=== PATIENT | female | born 1975 | race African-American/Black ===

== ENCOUNTER 2019-11-28 08:41 | Inpatient (IN) | payer BC, OTHER ==
[2019-11-25 18:05] VITALS: BMI 42.0
[2019-11-28] MEDS ORDERED: ceFAZolin SODIUM 1 GM VIAL ONE ×2 (08:49→11:42)
[2019-11-28] MEDS ORDERED: ROCURONIUM BROMIDE 50 MG/5 ML VIAL ONE ×2 (08:49→11:37)
[2019-11-28] MEDS ORDERED: PROPOFOL 20 ML ONE ×3 (08:49→11:37)
[2019-11-28] MEDS ORDERED: LIDOCAINE HCL/PF 2% SDV 5ML VIAL ONE (08:51)
[2019-11-28] MEDS ORDERED: SODIUM CHLORIDE 0.9% P/F 10 ML VIAL IJ ONE (08:51)
[2019-11-28] MEDS ORDERED: ePHEDrine SULFATE 50 MG/1 ML AMPULE ONE (08:53)
[2019-11-28] MEDS ORDERED: MIDAZOLAM HCL 2 MG/2 ML SINGLE DOSE VIAL ONE ×3 (09:51→11:24)
[2019-11-28] MEDS ORDERED: BUPIVACAINE HCL/PF 0.5% (5 MG/ML) 30 ML VIAL IJ ONE (09:52)
[2019-11-28] MEDS ORDERED: DEXAMETHASONE SOD PHOSPHATE/PF 10 MG/ML SDV ONE (09:52)
[2019-11-28] MEDS ORDERED: DEXAMETHASONE SOD PHOSPHATE 4 MG/1 ML VIAL ONE (11:48)
[2019-11-28] MEDS ORDERED: ONDANSETRON 4 MG/2 ML VIAL ONE (11:48)
[2019-11-28] MEDS ORDERED: BUPIVACAINE HCL/PF 0.25% (2.5MG/ML) 10 ML VIAL IJ ONE ×3 (12:01→13:00)
[2019-11-28] MEDS ORDERED: PHENYLEPHRINE HCL 10 MG/1 ML SINGLE DOSE VIAL ONE ×2 (12:27→12:28)
[2019-11-28] MEDS ORDERED: GLYCOPYRROLATE 0.2 MG/1 ML VIAL ONE (12:44)
[2019-11-28] MEDS ORDERED: NEOSTIGMINE METHYLSULFATE 0.5 MG/ML - 10 ML MDV ONE (12:44)
[2019-11-28] MEDS ORDERED: ONDANSETRON 4 MG/2 ML VIAL IVPUSH PRN ×2 (12:57→14:31)
[2019-11-28] MEDS ORDERED: HYDROmorphone HCL 0.5 MG/0.5 ML SYRINGE IVPB PRN (12:59)
[2019-11-28] MEDS ORDERED: SODIUM CHLORIDE 1,000 ML IV SCH (13:00)
[2019-11-28] MEDS ORDERED: HYDROmorphone HCL/PF 1 MG/ML VIAL IVPB PRN (13:00)
[2019-11-28] MEDS ORDERED: FAMOTIDINE 20 MG/50 ML IVPB 20 MG/50 ML MG IVPB ONE (13:07)
--- NOTE | 2019-11-28 13:07 | OP ---
Operative Note - Note: Operative Date: 11/28/19 Pre-Operative Diagnosis: Morbid Obesity. Hypertension Operation: Laparoscopic Vertical Sleeve Gastrectomy. Laparoscopic lysisi of adhesions. Diagnostic Laparoscopy Findings: Greater curve sleeve gastrectomy performed with #[address] Laparoscopic lysis of adhesions performed in upper abdomen secondary to previous midline incision Very enlarged left lobe of liver Post-Operative Diagnosis: Same as Pre-op (Abdominal adhesions; Hepatomegaly) Surgeon: Gerry Greene Gold Stamper: Bobby Amaya Anesthesia: General Specimens Removed: Greater curve of stomach Estimated Blood Loss (mls): 50 Operative Report Dictated: Yes
[2019-11-28 14:19] LABS: HEMATOCRIT 38.2 % (32.4-45.2); MCH 24.8 pg (25.7-33.7); MCHC 31.5 g/dl (32.0-36.0); MEAN CELL VOLUME 78.9 fl (80-96); PLATELET COUNT 264 K/MM3 (134-434); RBC 4.84 M/mm3 (3.60-5.2); RDW 15.5 % (11.6-15.6); WHITE BLOOD COUNT 18.3 K/mm3 (4.0-10.8)
[2019-11-28 14:26] LABS: ALBUMIN 4.1 g/dl (3.4-5.0); BILIRUBIN,TOTAL 0.4 mg/dl (0.2-1); CALCIUM 8.9 mg/dl (8.5-10); POTASSIUM 4.4 mmol/L (3.5-5.1); TOT PROT 7.3 g/dl (6.4-8.2)
[2019-11-28] MEDS ORDERED: PROMETHAZINE HCL 25 MG/1 ML VIAL IVPUSH PRN (14:31)
--- NOTE | 2019-11-28 14:47 | OP ---
DATE OF OPERATION: 11/28/2019 PREOPERATIVE DIAGNOSES: 1. Morbid obesity. 2. Hypertension. POSTOPERATIVE DIAGNOSES: 1. Morbid obesity. 2. Hypertension. 3. Abdominal adhesion. 4. Hepatomegaly. PROCEDURE PERFORMED: 1. Laparoscopic vertical sleeve gastrectomy. 2. Laparoscopic lysis of adhesion. 3. Diagnostic laparoscopy. OPERATING SURGEON: Gerry Greene MD SIGNALS COLLECTOR/ANALYST: Bobby Amaya MD ANESTHESIA: General. DESCRIPTION OF PROCEDURE: The patient was brought into the operating room, placed on the OR table in a supine position. All precautions were taken initially including padding for the back and the feet, and Venodyne boots were placed on both lower extremities. At that point, the abdomen was prepped and draped in the usual manner. A Veress needle was placed in the left upper quadrant, and a pneumoperitoneum was established. Under direct vision with the laparoscopic camera, a No. 5 bladeless trocar was placed in the left upper quadrant. Through that trocar, a laparoscopic camera was placed. There was noted to be a large amount of admissions from the patient's previous lower midline incision, which also extended about 3-4 cm above the umbilicus. Under direct vision, a No. 15 bladeless trocar was placed in the midline in a supraumbilical position in attempt to get away from the adhesions. There were adhesions noted to be around there. It was decided that the adhesions would have to be lysed for safety reasons. A No. 5 bladeless trocar was placed below the left costal margin, and that became the camera port. This was followed by a No. 5 bladeless trocar placed in the left lower quadrant just below the umbilicus. Now with the 2 left-sided ports as working ports, the adhesions were lysed with a combination of blunt dissection with laparoscopic instrument and also with laparoscopic scissors. Once the adhesions were lysed all the way to the umbilicus or below, it showed that the No. 15 trocar port was safely through the abdominal wall and not near any of intestinal contents. This was followed by a No. 5 bladeless trocar below the right costal margin. At this juncture, a Gerald liver retractor was placed in the epigastrium to retract the left lobe of the liver. The left lobe was extremely enlarged and difficult to retract in order to gain sufficient exposure of the stomach. However, with much manipulation, it was able to be retracted, and then the patient was placed in a 20-degree reverse Trendelenburg position by Anesthesia. The pylorus was noted on distal stomach, and from that area, 6 cm was measured proximally. Here the operating surgeon lifted the stomach toward the anterior abdominal wall as the baking assistant surgeon retracted the gastrocolic ligament inferiorly. The LigaSure device was then used to dissect the gastrocolic ligament off the greater curve of the stomach. This continued in a superior and vertical direction until the final short gastric vessel between the superior pole spleen and the proximal fundus was divided. At this juncture, Anesthesia advanced a No. 36 bougie into the distal stomach, or antrum. With the bougie held along the lesser curvature, a series of mejia was performed with the first 2 being black load mejia, 6 cm in length, along the bougie. The was followed by a series of purple mejia, also 6 cm in length and also along the bougie. When the final staple was applied in the left upper quadrant, greater curve was now completely detached from the lesser curve. It should be noted that prior to applying each staple, both the anterior and posterior fountain were checked that they were equal, and in the area of the esophagogastric junction approximately 1-1.5 cm serosa remained on the anterior and posterior surface. At this juncture, the staple line was checked for hemostasis and for leaks. The hemostasis appeared normal. No signs of any bleeding were coming from the staple line. Saline was placed around the staple line. Anesthesia inserted air into the orogastric tube, which showed the entire stomach distended, no obstruction, and no leaks were noted. When the stomach was now decompressed through the bougie, it again showed the staple line intact with no signs of any oozing or bleeding. As a further accompaniment of hemostasis, Surgicel was placed in the area along the staple line and also along the resected gastric vessels. The resected greater curve was now removed through the No. 15 trocar site, and the No. 15 trocar site was closed with endo closure device to prevent internal hernia and to prevent bleeding. Under direct vision all trocars were removed and the pneumoperitoneum was released. All trocar sites were injected with 0.25% Marcaine. The No. 15 trocar was closed with 3-0 Vicryl in the subcutaneous tissue, and then all trocar sites were closed 4-0 Biosyn in subcuticular fashion. Dressings were applied. Patient awoken from anesthesia and sent out of the operating room to the recovery room in stable condition. EXPECTED BLOOD LOSS: 50 mL. Debbie [id number]
[2019-11-28] MEDS ORDERED: ALPRAZolam 1 MG TABLET PO PRN (17:50)
[2019-11-28] MEDS: METOCLOPRAMIDE HCL INJECTION 10 MG/2 ML VIAL IVPUSH SCH (18:34)
[2019-11-28] MEDS ORDERED: HYDROmorphone HCL/PF 1 MG/ML VIAL IM PRN (22:03)
[2019-11-28] MEDS ORDERED: ONDANSETRON *ODT* 4 MG TABLET SL PRN (22:10)
[2019-11-28] MEDS: FAMOTIDINE 20 MG/50 ML IVPB 20 MG/50 ML MG IVPB SCH (22:21)
[2019-11-28] MEDS: METOCLOPRAMIDE HCL 10 MG TABLET (FP) PO SCH (22:28)
[2019-11-28 22:54] LABS: HEMATOCRIT 37.7 % (32.4-45.2); MEAN CELL VOLUME 78.2 fl (80-96); MEAN PLT VOLUME 9.4 fl (7.5-11.1); PLATELET COUNT 214 K/MM3 (134-434); RBC 4.82 M/mm3 (3.60-5.2); RDW 16.1 % (11.6-15.6); WHITE BLOOD COUNT 15.6 K/mm3 (4.0-10.8)
[2019-11-28 23:07] LABS: ALBUMIN 4.2 g/dl (3.4-5.0); BILIRUBIN,TOTAL 0.5 mg/dl (0.2-1); CREATININE 0.9 mg/dl (0.55-1.3); POTASSIUM 4.4 mmol/L (3.5-5.1); TOT PROT 7.6 g/dl (6.4-8.2)
[2019-11-29] MEDS: METOCLOPRAMIDE HCL 10 MG TABLET (FP) PO SCH ×3 (04:23→15:16)
[2019-11-29] MEDS: HYDROmorphone HCL 0.5 MG/0.5 ML SYRINGE IM PRN ×2 (06:20→10:44)
[2019-11-29] MEDS: METOCLOPRAMIDE HCL INJECTION 10 MG/2 ML VIAL IVPUSH SCH (07:57)
[2019-11-29 08:21] LABS: HEMATOCRIT 35.8 % (32.4-45.2); HEMOGLOBIN 11.6 GM/dl (10.7-15.3); MCH 25.2 pg (25.7-33.7); MCHC 32.5 g/dl (32.0-36.0); MEAN CELL VOLUME 77.6 fl (80-96); MEAN PLT VOLUME 9.8 fl (7.5-11.1); PLATELET COUNT 217 K/MM3 (134-434); RBC 4.62 M/mm3 (3.60-5.2); WHITE BLOOD COUNT 17.1 K/mm3 (4.0-10.8)
[2019-11-29 08:34] LABS: BILIRUBIN,TOTAL 0.6 mg/dl (0.2-1); CREATININE 0.8 mg/dl (0.55-1.3); POTASSIUM 4.3 mmol/L (3.5-5.1); TOT PROT 7.3 g/dl (6.4-8.2)
--- NOTE | 2019-11-29 09:34 | PN ---
Progress Note, Physician Chief Complaint: AWAKE ALERT C/O EPIGASTRIC PAIN S/P SLEEVE - Current Medication List Current Medications: Active Medications Alprazolam (Xanax) 1 mg PO Q12H PRN PRN Reason: ANXIETY Last Admin: 11/28/19 20:47 Dose: 1 mg Documented by: Amlodipine Besylate (Norvasc -) 5 mg PO DAILY [facility] Hydromorphone HCl (Dilaudid) 0.5 mg IM Q4H PRN PRN Reason: PAIN LEVEL 1-5 Last Admin: 11/29/19 06:20 Dose: 0.5 mg Documented by: Hydromorphone HCl (Dilaudid -) 1 mg IM Q4H PRN PRN Reason: PAIN LEVEL 6-10 Famotidine/Sodium Chloride (Pepcid 20 Mg Premixed Ivpb -) 20 mg in 50 mls @ 100 mls/hr IVPB BID [facility] [place] Last Admin: 11/28/19 22:21 Dose: Not Given Documented by: Sodium Chloride (Normal Saline -) 1,000 mls @ 150 mls/hr IV ASDIR [facility] [place] Last Admin: 11/29/19 07:57 Dose: Not Given Documented by: Metoclopramide HCl (Reglan -) 10 mg PO Q6H [facility] [place] Last Admin: 11/29/19 04:23 Dose: 10 mg Documented by: Ondansetron HCl (Zofran Odt -) 4 mg SL Q4H PRN PRN Reason: NAUSEA AND/OR VOMITING - Objective Vital Signs: Vital Signs Temperature 98.4 F 11/29/19 06:00 Pulse Rate 114 H 11/29/19 06:00 Respiratory Rate 20 11/29/19 06:00 Blood Pressure 112/51 L 11/29/19 06:00 O2 Sat by Pulse Oximetry (%) 100 11/29/19 06:00 Constitutional: Yes: Mild Distress Cardiovascular: Yes: Regular Rate and Rhythm Respiratory: Yes: WNL Gastrointestinal: Yes: Soft, Abdomen, Obese, Tenderness Edema: No Psychiatric: Yes: Other Labs: CBC, BMP 11/29/19 07:30 11/29/19 07:30 Problem List - Problems (1) Abdominal pain Code(s): R10.9 - UNSPECIFIED ABDOMINAL PAIN (2) Obesity (BMI 30-39.9) Code(s): E66.9 - OBESITY, UNSPECIFIED (3) S/P laparoscopic sleeve gastrectomy Code(s): Z98.84 - BARIATRIC SURGERY STATUS Assessment/Plan LABS REVIEWED WBC ELEVATED POST OP MONITOR LEVELS POD #1 SLEEVE GASTRECTOMY SIMETHICONE STAT BARIATRIC DIET DVT PROPHYLAXIS OOB TO CHAIR SURGERY F/U
[2019-11-29] MEDS ORDERED: amLODIPine BESYLATE 5 MG TABLET (FP) PO SCH (10:00)
[2019-11-29] MEDS: FAMOTIDINE 20 MG/50 ML IVPB 20 MG/50 ML MG IVPB SCH (10:45)
--- NOTE | 2019-11-29 12:27 | PN ---
Progress Note (short form) - Note Progress Note: Anesthesia postop note 44 y/o F s/p GA for gastric sleeve POD#1, vss, aaox3, pain fairly well controlled. No anesthesia complications.
[2019-11-29] MEDS ORDERED: SIMETHICONE 80 MG TAB.CHEW (FP) PO PRN (14:15)
[2019-11-29 14:17] VITALS: BP 123/70; PULSE 110; TEMP 98.5
--- NOTE | 2019-11-29 14:18 | PN ---
Progress Note, Physician Chief Complaint: AWAKE ALERT IN MODERATE DISTRESS C/O EPIGASTRIC PAIN SHARP 8/10 INTENSITY NO FEVERS DENIES VOMITING, DENIES CHEST PAIN OR SOB - Current Medication List Current Medications: Active Medications Alprazolam (Xanax) 1 mg PO Q12H PRN PRN Reason: ANXIETY Last Admin: 11/28/19 20:47 Dose: 1 mg Documented by: Amlodipine Besylate (Norvasc -) 5 mg PO DAILY [facility] Last Admin: 11/29/19 10:50 Dose: 5 mg Documented by: Hydromorphone HCl (Dilaudid) 0.5 mg IM Q4H PRN PRN Reason: PAIN LEVEL 1-5 Last Admin: 11/29/19 10:44 Dose: 0.5 mg Documented by: Hydromorphone HCl (Dilaudid -) 1 mg IM Q4H PRN PRN Reason: PAIN LEVEL 6-10 Famotidine/Sodium Chloride (Pepcid 20 Mg Premixed Ivpb -) 20 mg in 50 mls @ 100 mls/hr IVPB BID [facility] Last Admin: 11/29/19 10:45 Dose: 100 mls/hr Documented by: Sodium Chloride (Normal Saline -) 1,000 mls @ 150 mls/hr IV ASDIR [facility] Last Admin: 11/29/19 07:57 Dose: Not Given Documented by: Metoclopramide HCl (Reglan -) 10 mg PO Q6H [facility] Last Admin: 11/29/19 10:44 Dose: 10 mg Documented by: Ondansetron HCl (Zofran Odt -) 4 mg SL Q4H PRN PRN Reason: NAUSEA AND/OR VOMITING Simethicone (Mylicon -) 80 mg PO Q4H PRN PRN Reason: GAS - Objective Vital Signs: Vital Signs Temperature 98.8 F 11/29/19 10:00 Pulse Rate 114 H 11/29/19 10:00 Respiratory Rate 20 11/29/19 10:00 Blood Pressure 124/72 11/29/19 10:00 O2 Sat by Pulse Oximetry (%) 99 11/29/19 10:00 Constitutional: Yes: Moderate Distress Cardiovascular: Yes: Regular Rate and Rhythm Respiratory: Yes: CTA Bilaterally Gastrointestinal: Yes: Abdomen, Obese, Tenderness Genitourinary: Yes: WNL Musculoskeletal: Yes: WNL Extremities: Yes: WNL Neurological: Yes: WNL Labs: CBC, BMP 11/29/19 07:30 11/29/19 07:30 Problem List - Problems (1) S/P laparoscopic sleeve gastrectomy Code(s): Z98.84 - BARIATRIC SURGERY STATUS (2) Abdominal pain Code(s): R10.9 - UNSPECIFIED ABDOMINAL PAIN (3) Obesity (BMI 35.0-39.9 without comorbidity) Code(s): E66.9 - OBESITY, UNSPECIFIED (4) Obesity (BMI 30-39.9) Code(s): E66.9 - OBESITY, UNSPECIFIED Assessment/Plan LABS REVIEWED WBC ELEVATED POST OP MONITOR LEVELS POD #1 SLEEVE GASTRECTOMY SIMETHICONE STAT BARIATRIC DIET DVT PROPHYLAXIS OOB TO CHAIR SURGERY F/U
--- NOTE | 2019-11-29 15:37 | PN ---
Progress Note (short form) - Note Progress Note: POD#1 Afebrile; VSS P-104-115 (presently 107) Was 97 pre-op Pt sitting in chair C/O epigastric gas, also left lateral muscle pain UGI- no leak, no obstruction WBC-17.1 (decreased from 18.3) H/H-11.6/35.8 (stable) AST-146 ALT-120 [id number] P- Discussed post-op care with sister and patient at bedside Begin PO clear liquids- 2 oz PO TID D/C pt home today
--- NOTE | 2019-11-29 19:42 | DS ---
DATE OF ADMISSION: 11/28/2019 DATE OF DISCHARGE: 11/29/2019 HISTORY OF PRESENT ILLNESS/HOSPITAL COURSE: The patient is a 44-year-old woman with a history of morbid obesity for many years despite multiple attempts at dietary weight loss. Admitted to [facility] on November 28, 2019, for elective sleeve gastrectomy surgery. The details of the procedure are described in a postoperative note patient was sent to recovery room, where she was stabilized and sent to the floor. She had an uneventful night on the floor with very little nausea reported and only a moderate amount of pain. Most of the pain was within the left upper quadrant laterally in the midaxillary line and presumed to be . On the morning of November 29, 2019, patient presented to radiology where Gastrografin swallow showed no leak and no obstruction from the gastric sleeve. She returned to her room, where she tolerated 2 ounces of clear liquids well without any difficulty. Her lab values were normal on the day of the surgery. White count was still high at 17 but down from 18.3, hemoglobin and hematocrit was stable, and that was reported as 11.6 and 35.8. The rest of her chemistries were normal, and the liver function tests which were elevated immediately after surgery were starting to decrease compared to the previous 2 blood draws. The glucose level remains in the very low 200 to 210 range. Instructions were given to the patient with her sister also at the bedside. This included remaining on a clear liquid diet for the next 10 days which included 3 ounces of clear liquids 4 to 6 times a day, and also sips of water in between. Patient instructed to return in 6 days to bariatric service for further dietary instruction. LORRAINE EDWARDS M.D. [id number]
--- NOTE | 2019-12-02 14:21 | PATH ---
Surgical Pathology Report Patient Name: MERVAT TIJERINA Med. Rec. #: [id number] /Age/Gender: 1975 (Age: 44) / F Account: [id number] Location: [facility] Taken: 11/28/2019 Received: 11/28/2019 Reported: 12/02/2019 Physicians: Gerry Greene M.D. Specimen(s) Received GREATER CURVATURE STOMACH Clinical History Morbid obesity Final Diagnosis GREATER CURVATURE OF STOMACH, LAPAROSCOPIC SLEEVE GASTRECTOMY: PORTION OF STOMACH WITH CHRONIC GASTRITIS. IMMUNOSTAIN FOR H. PYLORI IS NEGATIVE. NEGATIVE FOR INTESTINAL METAPLASIA. Electronically Signed Rene Cadet M.D. Gross Description Received in formalin, labeled "greater curvature of stomach," is a 67 gram, 17.0 x 2.7 x 2.0 cm. portion of stomach with a stapled margin of resection. The serosa is patrick-rangel with minimal attached fat. The mucosa is patrick-pink with normal folds. No mucosal masses are identified. Resin Coater sections are submitted in one cassette. [facility]/11/29/2019
== END 2019-11-29 17:35 | disposition home or self-care (01) | DRG 621 ==
LOC: FM/S 08:41
PROVIDERS: ADMIT Surgery; ATTEND Surgery
PROC: 0DNW4ZZ Release Peritoneum, Percutaneous Endoscopic Approach (ICD-10-PCS; 2019-11-28)
PROC: 0DJ04ZZ Inspection of Upper Intestinal Tract, Percutaneous Endoscopic Approach (ICD-10-PCS; 2019-11-28)
PROC: 0DB64Z3 Excision of Stomach, Percutaneous Endoscopic Approach, Vertical (ICD-10-PCS; principal; 2019-11-28 11:56)
DX: E66.01 Morbid (severe) obesity due to excess calories (principal); Z68.41 Body mass index [BMI] 40.0-44.9, adult; I10 Essential (primary) hypertension; K66.0 Peritoneal adhesions (postprocedural) (postinfection); R16.0 Hepatomegaly, not elsewhere classified
CPT/HCPCS: 36415; 74240-TC-FY; 80053; 84703; 85027; 86850; 86900; 86901; 88305-TC; 94760